=== PATIENT | female | born 1990 | race Hispanic/Latino ===

== ENCOUNTER 2016-10-12 13:10 | Emergency (ER) | payer OTHER ==
[~2016-10-12] VITALS: Ht 160 cm; Wt 89.1 kg
[2016-10-12 14:23] LABS: HEMATOCRIT 37.3 % (36.0-46.0); MCH 32.2 PG (29.0-34.0); MCHC 33.8 G/DL (30.0-36.0); MCV 95.4 FL (83-99); MEAN PLAT.VOLUME 9.3 uM^3 (9.5-12.4); PLATELET COUNT 350 K/uL (156-360); RBC DIS.WIDTH-CV 11.3 % (11.8-14.6); RBC DIS.WIDTH-SD 39.6 % (39-53); RED BLOOD COUNT 3.91 M/uL (3.80-5.20); WHITE BLOOD COUNT 10.3 K/uL (4.1-10.2)
[2016-10-12 14:32] LABS: CHLORIDE 106 mEq/L (99-109); POTASSIUM 3.4 mEq/L (3.7-5.4); SODIUM 137 mEq/L (136-147)
[2016-10-12 14:34] LABS: GLUCOSE 88 mg/dL (70-99)
[2016-10-12 14:36] LABS: ANION GAP 9 MEQ/L (2-14); TOTAL BILIRUBIN 0.3 mg/dL (0.0-1.0)
[2016-10-12 14:38] LABS: ALKALINE PHOSPHATASE 45 IU/L (3-129)
[2016-10-12 14:39] LABS: GFR ESTIMATE (CALCULATED) > 59 mL/min/; UREA NITROGEN (BUN) 6 mg/dL (9-23)
[2016-10-12 15:08] LABS: QUANTITATIVE HCG 149086.3 MIU/ML
[2016-10-12] MEDS ORDERED: PRENATAL TABLE1 EAC3 PO (15:32)
[2016-10-12 15:53] LABS: ADD MIUA? NO; BILIRUBIN NEGATIVE; BLOOD NEGATIVE; COLOR YELLOW ((YELLOW)); GLUCOSE (STRIP) NEGATIVE; KETONES 20; LEUKOCYTES NEGATIVE; NITRITE NEGATIVE; PROTEIN (STRIP) NEGATIVE; SPECIFIC GRAVITY 1.017 (1.000-1.030); UCUL ADDED? NO; UROBILINOGEN 0.2 MG/DL (0.2-1.0)
[2016-10-12] MEDS ORDERED: ZOFRAN4 MG PO (19:56)
[2016-10-12 20:00] VITALS: BP 143/94
== END 2016-10-12 20:05 | disposition home or self-care (01) ==
LOC: EME 13:10
DX: O26.891 Other specified pregnancy related conditions, first trimester (principal); R51 Headache; Z3A.11 11 weeks gestation of pregnancy; O99.89 Other specified diseases and conditions complicating pregnancy, childbirth and the puerperium; H53.8 Other visual disturbances; R42 Dizziness and giddiness; O10.911 Unspecified pre-existing hypertension complicating pregnancy, first trimester
CPT/HCPCS: 80053; 81003; 84702; 85027; 99281; 99284; J2405; J7030

== ENCOUNTER 2017-02-14 17:14 | Outpatient (CLI) | payer OTHER ==
[~2017-02-14 17:14] MED LIST: PRENATAL TABLE1 EAC3 PO; ZOFRAN4 MG PO
[2017-02-14 17:26] LABS: EOSINOPHIL (%) 0.6 % (0-5); EOSINOPHIL COUNT 0.1 K/uL (0-0.3); HEMATOCRIT 31.9 % (36.0-46.0); IMMATURE GRANULOCYTE (%) 0.9 % (0.0-0.7); IMMATURE GRANULOCYTE COUNT 0.1 K/uL; INSTRUMENT ABS NEUTROPHIL CT 8.1 K/uL; LYMPHOCYTE COUNT 3.4 K/uL (1.0-2.8); MCH 32.7 PG (29.0-34.0); MCHC 35.1 G/DL (30.0-36.0); MCV 93.3 FL (83-99); MEAN PLAT.VOLUME 8.8 uM^3 (9.5-12.4); MONOCYTE (%) 6.1 % (3-12); MONOCYTE COUNT 0.8 K/uL (0-0.8); NEUTROPHIL COUNT 8.1 K/uL (1.8-6.4); PLATELET COUNT 329 K/uL (156-360); RBC DIS.WIDTH-CV 11.9 % (11.8-14.6); RED BLOOD COUNT 3.42 M/uL (3.80-5.20); WHITE BLOOD COUNT 12.4 K/uL (4.1-10.2)
[2017-02-14 17:35] LABS: AMYLASE 99 IU/L (1-118); CHLORIDE 109 mEq/L (99-109); POTASSIUM 3.5 mEq/L (3.7-5.4); SODIUM 138 mEq/L (136-147)
[2017-02-14 17:37] LABS: GLUCOSE 130 mg/dL (70-99)
[2017-02-14 17:38] LABS: ANION GAP 10 MEQ/L (2-14)
[2017-02-14 17:40] LABS: SERUM ETHYL ALCOHOL < 10 mg/dL
[2017-02-14 17:41] LABS: GFR ESTIMATE (CALCULATED) > 59 mL/min/
[2017-02-14 17:42] LABS: UREA NITROGEN (BUN) 5 mg/dL (9-23)
[2017-02-14 17:44] LABS: LIPASE 46 U/L (1.0-51.0)
[2017-02-14 18:08] LABS: QUANTITATIVE HCG 45624.6 MIU/ML
[2017-02-14 19:28] VITALS: BP 113/72
[2017-02-14 20:48] LABS: ADD MIUA? NO; BILIRUBIN NEGATIVE; BLOOD NEGATIVE; COLOR YELLOW ((YELLOW)); GLUCOSE (STRIP) NEGATIVE; KETONES 5; LEUKOCYTES NEGATIVE; NITRITE NEGATIVE; PROTEIN (STRIP) NEGATIVE; SPECIFIC GRAVITY 1.008 (1.000-1.030); UCUL ADDED? NO; UROBILINOGEN 0.2 MG/DL (0.2-1.0)
[2017-02-14 21:08] LABS: AMPHETAMINE NEGATIVE (500 ng/mL); BARBITURATES NEGATIVE (200 ng/mL); BENZODIAZEPINES NEGATIVE (150 ng/mL); COCAINE NEGATIVE (150 ng/mL); INTERNAL CONTROLS VALID? YES; METHADONE NEGATIVE (200 ng/mL); METHAMPHETAMINE NEGATIVE (500 ng/mL); OPIATES (MORPHINE) NEGATIVE (100 ng/mL); OXYCODONE NEGATIVE (100 ng/mL); PHENCYCLIDINE NEGATIVE (25 ng/mL); PROPOXYPHENE NEGATIVE (300 ng/mL); THC CANNABINOIDS NEGATIVE (50 ng/mL); TRICYCLIC ANTIDEPRESSANTS NEGATIVE (300 ng/mL)
== END 2017-02-14 22:15 | disposition home or self-care (01) ==
LOC: LDRP-OP 17:14 → TRA 17:14 → EDSTATUS 18:54 → 2WEST 19:03
PROVIDERS: Emergency Medicine
DX: O9A.212 Injury, poisoning and certain other consequences of external causes complicating pregnancy, second trimester (principal); S80.02XA Contusion of left knee, initial encounter; S40.012A Contusion of left shoulder, initial encounter; S30.1XXA Contusion of abdominal wall, initial encounter; Z3A.27 27 weeks gestation of pregnancy; V49.49XA Driver injured in collision with other motor vehicles in traffic accident, initial encounter; Y92.410 Unspecified street and highway as the place of occurrence of the external cause
CPT/HCPCS: 59025; 71010; 73030; 73560; 80048; 81003; 82150; 83690; 84702; 85025; 86900; 86901; 99281; 99285; G0378; G0480